=== PATIENT | female | born 1985 | race Caucasian/White ===

== ENCOUNTER 2021-10-17 22:46 | Emergency (ER) | payer OTHER ==
[~2021-10-17] VITALS: Ht 170.2 cm; Wt 81.8 kg
[2021-10-17 22:49] VITALS: TEMP 98.1
[2021-10-17 23:43] LABS: ALBUMIN 3.9 gm/dL (3.5-5.0); BILIRUBIN,TOTAL 0.2 mg/dL (0.2-1.2); CALCIUM 7.8 mg/dL (8.4-10.2); CREATININE, serum 0.76 mg/dL (0.57-1.11); POTASSIUM 4.2 mmol/L (3.5-4.5)
[2021-10-18 02:39] LABS: TRICYCLIC ANTIDEPRESS URINE NEGATIVE
[2021-10-18 02:54] VITALS: BP 120/81; PULSE 80
== END 2021-10-18 03:00 | disposition home or self-care (01) ==
LOC: COL.ER 22:46
PROVIDERS: Nurse Practitioner
DX: F10.129 Alcohol abuse with intoxication, unspecified (principal); Y90.8 Blood alcohol level of 240 mg/100 ml or more

== ENCOUNTER 2024-04-13 00:10 | Emergency (ER) | payer OTHER ==
[~2024-04-13] VITALS: Ht 167.6 cm; Wt 65.0 kg
[~2024-04-13 00:10] MED LIST: FLEXERIL 1010 MG/TAB PO
[2024-04-13 00:17] VITALS: TEMP 98
[2024-04-13 00:50] VITALS: BP 128/78; PULSE 86
== END 2024-04-13 00:50 | disposition home or self-care (01) ==
LOC: COL.ER 00:10
DX: R10.32 Left lower quadrant pain (principal)